=== PATIENT | female | born 1990 | race Caucasian/White ===

== ENCOUNTER 2024-01-24 12:38 | Inpatient (IN) | payer OTHER, BC ==
[~2024-01-24] VITALS: Ht 170.2 cm; Wt 99.8 kg
[2024-01-24] MEDS ORDERED: MAGNESIUM HYDROXIDE/AL HYDROX 30 ML CUP PO PRN ×2 (13:15→21:30)
[2024-01-24] MEDS ORDERED: CALCIUM CARBONATE 500 MG CHEW PO PRN ×2 (13:15→21:30)
[2024-01-24] MEDS ORDERED: LACTATED RINGER'S 1,000 ML IV PRN (13:15)
[2024-01-24 13:31] VITALS: BP 122/82
[2024-01-24] MEDS ORDERED: OXYTOCIN/DEXTROSE 5% 20 UNITS/100 ML BAG IV SCH (13:45)
[2024-01-24 14:00] LABS: AMPHETAMINES, URINE NEGATIVE (NEGATIVE); BARBITURATES, URINE NEGATIVE (NEGATIVE); BENZODIAZEPINE, URINE NEGATIVE (NEGATIVE); BUPRENORPHINE, URINE NEGATIVE (NEGATIVE); CANNABINOID, URINE NEGATIVE (NEGATIVE); COCAINE, URINE NEGATIVE (NEGATIVE); ECSTASY, URINE NEGATIVE (NEGATIVE); FENTANYL, URINE NEGATIVE (NEGATIVE); METHADONE, URINE NEGATIVE (NEGATIVE); OPIATES, URINE NEGATIVE (NEGATIVE); OXYCODONE, URINE NEGATIVE (NEGATIVE); PHENCYCLIDINE, URINE NEGATIVE (NEGATIVE)
[2024-01-24 14:01] LABS: HEMATOCRIT 38.9 % (35.0-50.0); HEMOGLOBIN 13.2 g/dL (12.0-18.0); MCH 33.4 (27-36); MCHC 33.9 g/dl (30-36); MCV 98.6 fl (81-99); RBC 3.95 M/ul (4.3-5.7); RDW 12.9 (10.5-15.0)
[2024-01-24 14:44] LABS: ABO A; RH POSITIVE
[2024-01-24 14:45] LABS: ANTIBODY SCREEN NEGATIVE
[2024-01-24] MEDS ORDERED: BUPIVACAINE HCL 0.25% 10 ML SDV INJ ONE (15:27)
[2024-01-24] MEDS ORDERED: ROPIVACAINE 0.2% 200 ML BAG ONE (15:27)
[2024-01-24] MEDS ORDERED: LIDOCAINE HCL 2% 5 ML SDV ONE (15:27)
[2024-01-24] MEDS ORDERED: LIDOCAINE 2% W/ EPI 1:100,000 20 ML VIAL ONE (15:59)
[2024-01-24] MEDS ORDERED: dexmedeTOMIDine HCl 200 MCG/2 ML VIAL ONE (16:00)
[2024-01-24] MEDS ORDERED: LACTATED RINGER'S 500 ML IV PRN (16:15)
[2024-01-24] MEDS ORDERED: ePHEDrine sulfate 5 MG/ML SYRINGE IV PRN (16:15)
[2024-01-24] MEDS ORDERED: ROPIVACAINE 0.2% 200 ML BAG EPIDURAL SCH ×2 (16:15)
[2024-01-24] MEDS ORDERED: LACTATED RINGER'S 2,000 ML IV ONE (16:15)
[2024-01-24] MEDS ORDERED: ePHEDrine KIT FOR FBC IV ONE (17:54)
--- NOTE | 2024-01-24 17:59 | PR ---
[facility] [address] [place], [place] [address] Signed Progress Notes IP Datetime Report Generated by CPN: 01/24/2024 17:59 PROGRESS NOTES: [id number] Impression: Normal Progression of Labor; Reassuring Heart Rate Procedures: Sterile Vag Exam Plan: Continue Present Management; Anticipate Vaginal Delivery VITAL SIGNS: [id number] Vital Signs: Reviewed; Within Normal Limits EXAM: [id number] Dilatation: 6.0 Effacement: 80 Station: -2 Contractions: q 1-3 minutes MEMBRANES: [id number] ROM Note: SROM 7/2 @ 1100, clear Comments: Pt seen and examined. Doing well. Comfortable w/ epidural but c/o nausea. Reviewed labor progress. All questions answered. Anticipate FETUS A: [id number] FHR Baseline: 125 Variability: Moderate 6-25bpm Accelerations: 15X15 Decelerations: Late FHR Category: Category II Presentation: Vertex Comments on Fetus A: No evidence of metabolic acidosis FETUS B: [id number] Signing Physician: Pa Zayas DO Copies: ~ *Electronically Signed* 01/24/24 8469 PA ZAYAS (MUNIR) DO PATIENT NAME: OZ GILL PROGRESS NOTE DATE OF : [birth year] PHYSICIAN: PA ZAYAS) DO RPT #: [id number] REPORT IS CONFIDENTIAL AND NOT TO BE RELEASED WITHOUT AUTHORIZATION
--- NOTE | 2024-01-24 20:17 | PR ---
[facility] [address] [facility] [place] [address] Signed Progress Notes IP Datetime Report Generated by CPN: 01/24/2024 20:17 PROGRESS NOTES: [id number] Impression: Normal Progression of Labor; Reassuring Heart Rate Procedures: Sterile Vag Exam Plan: Anticipate Vaginal Delivery Informed Consent Obtain: Vaginal Delivery VITAL SIGNS: [id number] Vital Signs: Reviewed; Within Normal Limits EXAM: [id number] Dilatation: 10.0 Effacement: 80 Station: -2 Contractions: q 1-2 min MEMBRANES: [id number] ROM Note: SROM 7/2 @ 1100, clear Comments: Pt seen and examined. Doing well. Comfortable w/ contractions. Will move towards delivery. Anticipate soon. All questions answered FETUS A: [id number] FHR Baseline: 125 Variability: Moderate 6-25bpm Accelerations: 15X15 Decelerations: Early FHR Category: Category I Presentation: Vertex Comments on Fetus A: No evidence of metabolic acidosis FETUS B: [id number] Signing Physician: Pa Zayas DO Copies: ~ *Electronically Signed* 01/24/242016 PA ZAYAS (MUNIR) DO PATIENT NAME: OZ GILL PROGRESS NOTE DATE OF : 90 PHYSICIAN: PA ZAYAS) DO RPT #: [id number] REPORT IS CONFIDENTIAL AND NOT TO BE RELEASED WITHOUT AUTHORIZATION
[2024-01-24] MEDS ORDERED: HYDROCORTISONE ACETATE 25 MG SUPP PR PRN (21:30)
[2024-01-24] MEDS ORDERED: MAGNESIUM HYDROXIDE 30 ML UDC PO PRN (21:30)
[2024-01-24] MEDS ORDERED: IBUPROFEN 600 MG TAB PO PRN (21:30)
[2024-01-24] MEDS ORDERED: ACETAMINOPHEN 325 MG TAB PO PRN (21:30)
[2024-01-24] MEDS ORDERED: OXYCODONE/APAP 5/325 TAB PO PRN (21:30)
[2024-01-24] MEDS ORDERED: WITCH HAZEL/GLYCERIN 1 EA PAD TOP PRN (21:30)
[2024-01-24] MEDS ORDERED: HYDROCODONE/ACETA 5/325 TAB PO PRN (21:30)
[2024-01-24] MEDS ORDERED: BENZOCAINE 60 ML AEROSOL TOP PRN (21:30)
[2024-01-24] MEDS ORDERED: OXYTOCIN/0.9 % SODIUM CHLORIDE 500 ML IV SCH (21:30)
[2024-01-25 06:20] LABS: HEMATOCRIT 33.9 % (35.0-50.0); HEMOGLOBIN 11.3 g/dL (12.0-18.0); MCH 32.9 (27-36); MCHC 33.3 g/dl (30-36); MCV 98.7 fl (81-99); RBC 3.43 M/ul (4.3-5.7); RDW 13.2 (10.5-15.0)
[2024-01-25] MEDS ORDERED: SENNOSIDES/DOCUSATE 1 EA TAB PO SCH (09:00)
--- NOTE | 2024-01-25 18:59 | PR ---
[facility] [address] [facility] [place], [place] [address] Signed PP Progress Notes Datetime Report Generated by CPN: 01/25/2024 18:59 SUBJECTIVE: [id number] Pain: Within Normal Limits Nausea/Vomiting: Denies Flatus: Yes Bowel Movement: No Vital Signs: [id number] Vital Signs: Reviewed; Within Normal Limits EXAM: Ongoing Cardiovascular: Normal Respiratory: Normal Abdomen/Uterus: Normal Lochia: Normal Vulva/Perineum: Not Done Breasts: Not Done CVA Tenderness: Normal Extremities: Normal Incision: Not Applicable Progress: Normal Exam Comments: Fundus firm U-2 nontender IMPRESSION/PLAN/PROCEDURES: [id number] Impression: Normal Progression Plan: Continue Present Management Progress Notes: Pt seen and examined. Doing well. Ambulating, voiding, and tolerating full diet. Pain and lochia minimal. well. No concerns. Desires d/c home tomorrow. Signing Physician: Pa Zayas DO Copies: ~ *Electronically Signed* 01/25/24 5150 PA ZAYAS (MUNIR) DO PATIENT NAME: OZ GILL PROGRESS NOTE DATE OF : 90 PHYSICIAN: PA ZAYAS (MUNIR) DO RPT #: [id number] REPORT IS CONFIDENTIAL AND NOT TO BE RELEASED WITHOUT AUTHORIZATION
--- NOTE | 2024-01-26 09:02 | PR ---
[facility] [address] [facility] [place], [place] [address] Signed PP Progress Notes Datetime Report Generated by CPN: 01/26/2024 09:02 SUBJECTIVE: [id number] Pain: Within Normal Limits Nausea/Vomiting: Denies Flatus: Yes Bowel Movement: No Vital Signs: [id number] Vital Signs: Reviewed; Within Normal Limits EXAM: Ongoing Cardiovascular: Normal Respiratory: Normal Abdomen/Uterus: Normal Lochia: Normal Vulva/Perineum: Not Done Breasts: Not Done CVA Tenderness: Normal Extremities: Normal Incision: Not Applicable Progress: Normal Exam Comments: Fundus firm U-2 nontender IMPRESSION/PLAN/PROCEDURES: [id number] Impression: Normal Progression Plan: Discharge Progress Notes: Pt seen and examined. Doing well. Ambulating, voiding, and tolerating full diet. Pain and lochia minimal. . Pt reports feeling in a "much better" place w/ mood than with prior delivery. Planning micronor for pp contraception. No questions or concerns. Desires d/c home Signing Physician: Pa Zayas DO Copies: ~ *Electronically Signed* 01/26/[address] PA ZAYAS (MUNIR) DO PATIENT NAME: OZ GILL PROGRESS NOTE DATE OF : 90 PHYSICIAN: PA ZAYAS) DO RPT #: [id number] REPORT IS CONFIDENTIAL AND NOT TO BE RELEASED WITHOUT AUTHORIZATION
== END 2024-01-26 10:00 | disposition home or self-care (01) | DRG 807 ==
LOC: FBCO 12:38 → FBC 13:00
PROVIDERS: ADMIT Obstetrics & Gynecology; ATTEND Obstetrics & Gynecology
PROC: 10E0XZZ Delivery of Products of Conception, External Approach (ICD-10-PCS; principal; 2024-01-24)
PROC: 3E0R3BZ Introduction of Anesthetic Agent into Spinal Canal, Percutaneous Approach (ICD-10-PCS; 2024-01-24)
PROC: 00HU33Z Insertion of Infusion Device into Spinal Canal, Percutaneous Approach (ICD-10-PCS; 2024-01-24)
PROC: 0UQMXZZ Repair Vulva, External Approach (ICD-10-PCS; 2024-01-24)
DX: O48.0 Post-term pregnancy (principal); Z37.0 Single live birth; Z3A.40 40 weeks gestation of pregnancy; O76 Abnormality in fetal heart rate and rhythm complicating labor and delivery; O71.82 Other specified trauma to perineum and vulva
CPT/HCPCS: 01960; 36415; 80307; 85027; 86850; 86900; 86901; A9270; J2001; J2590; J2795; J7121

== ENCOUNTER 2025-01-02 11:27 | Emergency (ER) | payer OTHER, BC ==
[~2025-01-02] VITALS: Ht 182.9 cm; Wt 84.0 kg
[2025-01-02 12:10] LABS: BILIRUBIN, URINE NEGATIVE (negative); BLOOD/HGB, URINE TRACE-I (Negative); KETONE, URINE NEGATIVE (Negative); LEUK ESTERASE, URINE NEGATIVE (negative); NITRITE, URINE NEGATIVE (negative)
[2025-01-02 12:19] LABS: CRYSTALS, URINE NONE SEEN (0-1+); EPITHELIAL CELLS, URINE SQUAMOUS 1+ /lpf (0-1+); WHITE BLOOD CELLS, URINE 0-1 /HPF (0-5)
[2025-01-02 12:20] LABS: BACTERIA, URINE NONE SEEN /hpf (negative); CASTS, URINE NONE SEEN \\lpf; COLLECTION TYPE, URINE CLEAN CATCH; REFLEX CULTURE, URINE No (No)
[2025-01-02 12:23] LABS: BASOPHILS 0.3 % (0.1-1.2); EOSINOPHILS 2.5 % (0.7-5.8); HEMATOCRIT 35.3 % (34.1-44.9); HEMOGLOBIN 11.7 g/dL (11.2-15.7); LYMPHOCYTES 31.4 % (19.3-51.7); MCH 32.9 PG (25.6-32.2); MCHC 33.1 g/dL (32.2-35.5); MCV 99.2 fL (79.4-94.8); MONOCYTES 6.6 % (4.7-12.5); NEUTROPHILS 59.1 % (34.0-71.1); PLATELET COUNT 232 K/uL (182-369); RBC 3.56 M/uL (3.93-5.22)
[2025-01-02 12:46] LABS: ABO A; RH POSITIVE
[2025-01-02 12:49] LABS: BUN/CREATININE RATIO 16.47 (6.0-28.6); CALCIUM 8.8 mg/dL (8.5-10.1); CREATININE, SERUM 0.85 mg/dL (0.55-1.02)
[2025-01-02 14:33] VITALS: BP 104/76
== END 2025-01-02 14:35 | disposition home or self-care (01) ==
LOC: ED 11:27
PROVIDERS: Emergency Medicine
DX: O03.9 Complete or unspecified spontaneous abortion without complication (principal)
CPT/HCPCS: 36415; 76801; 76805; 76817; 80048; 81001; 84702; 85025; 86900; 86901; 99284-25

== ENCOUNTER 2025-01-14 15:41 | Observation (INO) | payer OTHER, BC ==
[~2025-01-14] VITALS: Ht 200.7 cm; Wt 81.8 kg
[~2025-01-14 15:41] MED LIST: SEVOFLURANE 250 ML BTL INH ONE
[2025-01-14] MEDS ORDERED: LACTATED RINGER'S 1,000 ML IV PRN (16:00)
[2025-01-14 16:39] LABS: BASOPHILS 0.7 % (0.1-1.2); HEMATOCRIT 36.7 % (34.1-44.9); HEMOGLOBIN 11.9 g/dL (11.2-15.7); LYMPHOCYTES 43.3 % (19.3-51.7); MCH 32.2 PG (25.6-32.2); MCHC 32.4 g/dL (32.2-35.5); MCV 99.5 fL (79.4-94.8); MONOCYTES 8.7 % (4.7-12.5); NEUTROPHILS 44.1 % (34.0-71.1); PLATELET COUNT 248 K/uL (182-369); RBC 3.69 M/uL (3.93-5.22)
[2025-01-14 16:51] LABS: INR 1.02 (0.80-1.30)
[2025-01-14 16:52] VITALS: BP 105/63
[2025-01-14 16:54] LABS: PARTIAL THROMBOPLASTIN TIME 28.3 Sec (22.9-41.3)
[2025-01-14] MEDS ORDERED: SEMAGLUTID0.5 MG/0.1 SUB-Q (16:54)
[2025-01-14 17:16] LABS: ABO A; ANTIBODY SCREEN NEGATIVE; RH POSITIVE
[2025-01-14 17:18] LABS: ALBUMIN 3.9 g/dL (3.4-5.0); ALBUMIN/GLOBULIN RATIO 1.18 (1.1-2.4); ANION GAP 12.9 (7-21); BILIRUBIN, TOTAL 0.3 mg/dL (0.2-1.0); POTASSIUM 3.9 mmol/L (3.5-5.1); PROTEIN, TOTAL 7.2 g/dL (6.4-8.2)
[2025-01-14] MEDS ORDERED: ROCURONIUM BROMIDE 50 MG/5 ML SYR ONE (17:35)
[2025-01-14] MEDS ORDERED: fentaNYL citrate 100 MCG/2 ML VIAL ONE ×3 (17:35→21:05)
[2025-01-14] MEDS ORDERED: SUCCINYLCHOLINE IN 0.9% NACL 200 MG/10 ML SYRINGE ONE (17:35)
[2025-01-14] MEDS ORDERED: LIDOCAINE HCL 2% 5 ML SDV ONE (17:35)
[2025-01-14] MEDS ORDERED: propofoL 200 MG/20 ML VIAL ONE (17:35)
[2025-01-14] MEDS ORDERED: SODIUM CHLORIDE 0.9% 1,000 ML IV SCH (18:00)
--- NOTE | 2025-01-14 18:36 | NUR ---
PT TO FLOOR FROM DAY SURGERY AND CT SCAN. PT'S IN ROOM. PT RATES PAIN TO ABD AT 2/10 AND STATES IS TOLERABLE AT THIS TIME. CALL LIGHT WITHIN REACH.
[2025-01-14 18:38] VITALS: BP 103/63
--- NOTE | 2025-01-14 19:31 | NUR ---
in talking to patient. Pt will be taken to the OR tonight. at bedside. Consent signed.
--- NOTE | 2025-01-14 19:44 | NUR ---
WILL COLLECT UA IN THE OR. WIPE DOWN DONE, IV'S FLUSHED, LR FLUID AND STRAIGHT TUBING READY.
--- NOTE | 2025-01-14 20:30 | NUR ---
PATIENT HAS LEFT MED SURG FOR SURGERY
[2025-01-14] MEDS ORDERED: SUGAMMADEX SODIUM 200 MG/2 ML ML ONE (21:04)
[2025-01-14] MEDS ORDERED: KETOROLAC TROMETHAMINE 30 MG/ML VIAL ONE (21:04)
[2025-01-14 21:08] VITALS: BP 127/70
[2025-01-14] MEDS ORDERED: MEPERIDINE HCL 25 MG/1 ML VIAL ONE (22:12)
[2025-01-14] MEDS ORDERED: NALOXONE HCL 0.4 MG SYR IV PRN (22:15)
[2025-01-14] MEDS ORDERED: PROCHLORPERAZINE EDISYLATE 10 MG/2 ML VIAL IV PRN (22:15)
[2025-01-14] MEDS ORDERED: MAGNESIUM HYDROXIDE/AL HYDROX 30 ML CUP PO PRN (22:15)
[2025-01-14] MEDS ORDERED: SIMETHICONE 80 MG CHEW PO PRN (22:15)
[2025-01-14] MEDS ORDERED: OXYCODONE/APAP 5/325 TAB PO PRN (22:15)
[2025-01-14] MEDS ORDERED: FAMOTIDINE 20 MG/ 2 ML VIAL IV PRN (22:15)
[2025-01-14] MEDS ORDERED: ondansetron HCL 4 MG/2 ML VIAL IV PRN (22:15)
--- NOTE | 2025-01-14 22:40 | NUR ---
pt BACK FROM SURGERY AT 2240, AWAKE, ALERT. VSS. CPOX ON. REPORT RECEIVED FROM HANDOFF RNS. PRIMARY RN JEANIE IN ROOM ASSESSING pt.
[2025-01-14 22:44] VITALS: BP 103/56
--- NOTE | 2025-01-14 23:16 | NUR ---
PATIENT IN ROOM AND SETTLED IN FOR THE NIGHT. AT BEDSIDE. DENIES PAIN AT THIS TIME, ICE PACK APPLIED TO ABD. WATER AND 7UP GIVEN. IV FLUIDS ARE RUNNING, VITALS WNL. CRACKERS ALSO GIVEN. CALL LIGHT WITHIN REACH. DENIES ANY OTHER CARES AT THIS TIME.
--- NOTE | 2025-01-14 23:43 | NUR ---
01/14/25 2343 John Herring 4-PT ARRIVED TO PACU ON RA, DROWSY, BUT RESPONSIVE TO VERBAL STIMULI AND ANSWERING QUESTIONS APPROPRIATELY. PT NOTED TO BE SHIVERING AND GIVEN WARM BLANKETS. 2206-DR. SAINI AT BEDSIDE TO DISCUSS CASE WITH PT. 2210-PT DENIES PAIN OR NAUSEA WHEN ASKED. PT CONT TO SHIVER, BUT DENIES FEELING COLD. 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 5-IV DEMEROL GIVEN PER ORDERS. SURGICAL SITES VISUALIZED. PT WITH 3 LAP SITES TO ABD, MIKA CDI. PERIPAD IN PLACE WITH SMALL AMT OF SANGUINEOUS DRAINAGE PRESENT. PT CONT TO DENY PAIN AND NAUSEA WHEN ASKED. 2220-PTS SHAKING REDUCED. PT MORE AWAKE AND ASKING QUESTIONS. ALL QUESTIONS ANSWERED. PT ENCOURAGED TO DEEP BREATH AND COUGH. PT DEMONSTRATES UNDERSTANDING. 2225-SHAKING HAS CEASED. PT DROWSY BUT TALKING AND ANSWERING QUESTIONS APPROPRIATELY. SATS REMAIN STABLE ON RA AT 94% OR GREATER. 2229-DR. SAINI BACK AT PTS BEDSIDE CONVERSING. PT CONT TO DENY PAIN OR NAUSEA WHEN ASKED. 2235-SURGICAL SITES VISUALIZED AND NO ACUTE CHANGES IN DRESSINGS OR PERIPAD FROM INITIAL ASSESSMENT. RR EVEN AND UNLABORED. SATS STABLE AT 95% OR GREATER ON RA. PT CONT TO DENY PAIN AND NAUSEA WHEN ASKED. MED SURG FLR NOTIFIED OF PT RETURNING SOON. 224-PT TRASNFERRED BACK TO MED SURG ROOM 109 VIA BED. ALL PERSONAL BELONGINGS TAKEN WITH PT. REPORT GIVEN TO ADVISORY INTERNBLAKE Sargent SURGICAL SITES VISUALIZED WITH ADVISORY INTERN WHITNEY. BED PLUGGED IN, IN LOW POSITION, WHEELS LOCKED, AND CALL LIGHT WITHIN PT REACH. ALL QUESTIONS WERE ANSWERED. PT CONT TO DENY PAIN OR NAUSEA. PTS SPOUSE AT BEDSIDE.
--- NOTE | 2025-01-14 23:45 | NUR ---
PATIENT UP AND TOLERATED WELL. UNABLE TO VOID AT THIS TIME WILL TRY AGAIN LATER. BED CLEANED UP. PATIENT WASHED FACE AND GOT READY FOR BED.
[2025-01-14 23:46] VITALS: BP 88/44
--- NOTE | 2025-01-15 00:04 | NUR ---
Pt report received from BLAKE Shelby. Pt is resting supine in bed, eyes closed, breathing is regular, even, and non-labored. Side rails up x4, call light in reach. Pt's resting in chair next to bed, awake, watching television. White board updated.
[2025-01-15 00:47] VITALS: BP 93/53
[2025-01-15 00:48] VITALS: BP 93/53
[2025-01-15 01:48] VITALS: BP 98/52
[2025-01-15 01:49] VITALS: BP 98/52
--- NOTE | 2025-01-15 05:35 | NUR ---
In with pt for hourly rounding, pt is slightly awake, needs to get up to use the toilet. SBA as pt ambulates, line and tube mgmnt, in to void. Pt able to void, unmeasured, reports increasing pain with ambulation but states it goes away when she sits still. Pt provided with a fresh cup of coffee at her request, coffee provided to her spouse as well. Pt back in bed. IV S/L as pt is tolerating PO fluids and crackers without nausea. 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 VSS
[2025-01-15 05:45] VITALS: BP 105/55
[2025-01-15 05:59] LABS: HEMATOCRIT 34.7 % (34.1-44.9); HEMOGLOBIN 11.5 g/dL (11.2-15.7); MCH 32.8 PG (25.6-32.2); MCHC 33.1 g/dL (32.2-35.5); MCV 98.9 fL (79.4-94.8); RBC 3.51 M/uL (3.93-5.22)
--- NOTE | 2025-01-15 08:03 | NUR ---
HOURLY ROUNDING. PATIENT JUST WOKEN UP, AR BEDSIDE. PATIENT ASKED WHEN DOES THE DOCTOR DO THEIR ROUNDING. BOARD HAS BEEN UPDATED AND CALL LIGHT HAS BEEN PLACED WITHIN REACH
--- NOTE | 2025-01-15 08:24 | NUR ---
UR CLINICAL REVIEW: [facility] ME[facility] OBS FOR ECTOPIC WITH NEED FOR SURGICAL INTERVENTION [facility] OBS 01/14/25 @ 1541 ORDER MATCHES REG NO AUTH REQUIRED FOR OBS STAY PER [facility] GUIDELINES DISCHARGE TO HOME TODAY
[2025-01-15] MEDS ORDERED: SIMETHICONE 80 MG CHEW PO SCH (09:00)
[2025-01-15 09:40] VITALS: BP 106/67
[2025-01-15] MEDS ORDERED: PHARMACY RENAL DOSE ADJUSTMENT 1 DOSE MISC PO SCH (12:00)
--- NOTE | 2025-01-15 17:24 | OR ---
[facility] [address] [place], [place] [address] Signed DATE OF OPERATION: 01/14/2025 SURGEON: Pa Zayas DO PREOPERATIVE DIAGNOSES: Pelvic mass, likely ectopic . POSTOPERATIVE DIAGNOSES: 1. Left fallopian tube ectopic . 2. Left hemorrhagic cyst. 3. Hemoperitoneum. PROCEDURES PERFORMED: 1. Left salpingectomy. 2. Ovarian cystectomy. 3. Evacuation of hemoperitoneum. ANESTHESIA: General. ESTIMATED BLOOD LOSS: 400 mL of which the vast majority is hemoperitoneum at the beginning of the case. SPECIMEN: 1. Left fallopian tube and ectopic . 2. Left ovarian cyst wall. DRAINS: None. FINDINGS: Normal external genitalia with normal clitoris urethral meatus, bilateral Smiley's and Bartholin's glands. Normal vagina and cervix with moderate amount of menstrual/uterine bleeding at the beginning of the case. On laparoscopy, hemoperitoneum noted at the beginning of the case. Left fallopian tube mass consistent with ectopic as well as a left hemorrhagic ovarian cyst. Otherwise; normal uterus, right fallopian tube, bilateral ovaries. No evidence of endometriosis or other pelvic pathology. Normal liver, gallbladder, and appendix. Left ovary hemostatic at the end of the procedure. Electronically Signed By: PA ZAYAS DO (JD) 01/15/25 1724 PATIENT NAME: OZ GILL OPERATIVE REPORT DATE OF : 90 REPORT #: [id number] PHYSICIAN: PA ZAYAS (MUNIR) DO PCP: PA ZAYAS (MUNIR) DO REPORT IS CONFIDENTIAL AND NOT TO BE RELEASED WITHOUT AUTHORIZATION [facility] [address] [place], [place] [address] Signed COMPLICATIONS: None. INDICATIONS: Ms. Gill is a very pleasant 34-year-old female, who initially presented with miscarriage to the ER on 01/02/2025. She was found to have decreasing quants and ultrasound demonstrated no evidence of intra or extrauterine . The patient was advised to perform serial quant-hCGs and follow up in the office. She did not complete her hCGs and on followup today, the patient reports a 2-3 day history of worsening abdominal pelvic pain. No fever. Exam demonstrated chandelier sign, but no obvious adnexal mass. She was further evaluated with labs that demonstrated no leukocytosis, elevated lactic acid or other markers of inflammation. Vital signs were stable. She is afebrile. HCG was noted to be inappropriately elevated consistent with concern for ectopic . An ultrasound was performed demonstrating empty uterus with a complex adnexal mass concerning for ectopic versus hematoma versus abscess. In order to clarify this further, a CT of the pelvis was performed which did not show any signs of intrapelvic inflammation or infection. Recommended proceeding with a diagnostic laparoscopy with possible unilateral salpingectomy. The case was reviewed in detail with the patient and her , who both understand and agree and wished to proceed with the procedure. We did discuss that if fallopian tube was noted that salpingectomy would be their preferred approach. Risks, benefits, and alternatives were discussed in detail with the patient. The patient understands and wished to proceed with the procedure. TECHNIQUE: The patient was taken to the OR, timeout was performed to confirm correct patient, correct procedure. General anesthesia was adequately established. The patient was prepped and draped in the dorsal lithotomy position with feet in Yellofin stirrups. ICPs were on running and no preoperative antibiotics or heparin was indicated. The patient's clitoral piercing was removed. Cason catheter was inserted. Weighted speculum was placed in vagina and the anterior lip of the cervix was grasped with an Allis clamp. A Plerts uterine manipulator was placed and attention was turned to the abdomen. The surgeon's gloves were changed. The base of the umbilicus was infiltrated with 0.25% Marcaine with epinephrine. A 5 mm stab incision was made at the base of the umbilicus and a 5 mm laparoscopic port was placed under direct visualization without complication. Pneumoperitoneum was established. Upon establishment of pneumoperitoneum, hemoperitoneum was noted with ~ 350-400 of blood and clot noted. 5 mm promotions assistant sales marketing ports were placed in the left lower and right lower quadrant under direct visualization without complication. Hemoperitoneum was evacuated. Abdomen and pelvis irrigated for further evaluation. Normal liver, gallbladder, stomach, and appendix were noted. Attention was turned to the pelvis. The right adnexa appeared normal with normal ovary and fallopian tube. The left adnexa demonstrated a left fallopian tube Electronically Signed By: PA BELCHER) DO PARVEEN 01/15/25 1724 PATIENT NAME: OZ GILL OPERATIVE REPORT DATE OF : [birth year] REPORT #: [id number] PHYSICIAN: PA ZAYAS) PCP: PA ZAYAS) REPORT IS CONFIDENTIAL AND NOT TO BE RELEASED WITHOUT AUTHORIZATION [address] [address] Signed with mass consistent with ectopic in the isthmic portion. There is also a left hemorrhagic cyst incidentally noted. Decision was made to proceed with left salpingectomy as previously discussed with the patient and her partner. The left fallopian tube was grasped with fimbriated end, elevated and divided along the mesosalpinx using the LigaSure device. The tube was amputated at the cornu. The hemorrhagic cyst wall was then grasped with a blunt retractor and excised without difficulty. These two specimens were placed in an EndoCatch bag and delivered through the left assist left lower quadrant assist port without difficulty. Pneumoperitoneum was reestablished and the left trocar site was returned. The pelvis and abdomen were again copiously irrigated and the patient was placed into reverse Trendelenburg position and slowly advanced to steep Trendelenburg, removing as much blood and irrigant as possible. The left ovary was carefully evaluated. While there was no active bleeding, decision was made to ensure hemostasis with Tisseel. Tisseel was selected and applied to the left ovary and dissection site without difficulty. Pneumoperitoneum was slowly reduced and careful evaluation of the pelvis and left ovary was noted with no hemorrhage or bleeding appreciated. Pneumoperitoneum was reduced. Trocars were removed and trocar sites were repaired using 3-0 Vicryl Rapide in a subcuticular stitch. The Cason catheter was reinserted. The clitoral gonzales ring was replaced per patient request and the Hulka uterine manipulator was removed. The patient was then taken to PACU in good and stable condition. Sponge, needle, and instrument counts correct x2 at the end of the procedure. DO ETGAN Mueller/SHAHBAZL /[id number] Copies: ~ Electronically Signed By: PA ZAYAS DO (JD) 01/15/25 1724 PATIENT NAME: OZ GILL OPERATIVE REPORT DATE OF : [birth year] REPORT #: [id number] PHYSICIAN: PA ZAYAS (MUNIR) PCP: PA ZAYAS (MUNIR) DO REPORT IS CONFIDENTIAL AND NOT TO BE RELEASED WITHOUT AUTHORIZATION
--- NOTE | 2025-01-17 12:17 | PATH ---
[facility] [address] [place], [place] [address] Signed SPECIMEN(S): A LEFT FALLOPIAN TUBE, ECTOPIC SPECIMEN(S): B LEFT OVARIAN CYST WALL SPECIMEN SOURCE: A. LEFT FALLOPIAN TUBE, ECTOPIC B. LEFT OVARIAN CYST WALL CLINICAL HISTORY: Pelvic mass-ectopic FINAL PATHOLOGIC DIAGNOSIS: A. Fallopian tube, left, salpingectomy: - Fimbriated fallopian tube segment with intraluminal products of conception B. Ovary, left, cystectomy: - Fragments of fibrinoid tissue and hemorrhage BRP MICROSCOPIC EXAMINATION: Histologic sections of all submitted blocks are examined by light microscopy. These findings, together with the gross examination, support the pathologic diagnosis. GROSS DESCRIPTION: A. The specimen, labeled and designated "Derrick, left fallopian tube, ectopic ," is received in formalin and consists of fallopian tube that measure 5.7 cm in length and vary in diameter from 0.7 to 1.7 cm. The fallopian tube shows fimbria and dark red and congested serosa. The fallopian wall grossly look intact. Sectioning through the fallopian tube shows a lumen that is filled with coagulated blood. Elevated Motorman sections are submitted in (A1-A3). B. The specimen, labeled and designated "Derrick, left ovarian cyst wall," is received in formalin and consists of irregular shaped membranous and hemorrhagic tissue fragments that aggregate measure 2.3 x 2.0 x 0.6 cm. Sectioning through the specimen is grossly unremarkable. Entirely submitted in (B1). JS (under the direct supervision of a pathologist) The Gross Description was prepared using a voice recognition system. The report was reviewed for accuracy; however, sound-alike word errors, addition and/or deletions may occur. If there is any question about this report, please contact Client Services. PATIENT NAME: OZ GILL PATHOLOGY DATE OF : [birth year] REPORT #: [id number] PHYSICIAN: ALYSE PATHOLOGY PCP: PA SAINI (MUNIR) DO REPORT IS CONFIDENTIAL AND NOT TO BE RELEASED WITHOUT AUTHORIZATION [facility] [address] [place], [place] [address] Signed ADDITIONAL NOTES: Immunohistochemical and/or in situ hybridization studies if performed in this case included appropriate positive controls that reacted as expected. This test was developed and its performance characteristics determined by [facility]. It has not been cleared or approved by the U.S. Food and Drug Administration. The FDA has determined that such clearance or approval is not necessary. This test is used for clinical purposes. It should not be regarded as investigational or for research. [facility] is certified under the Clinical Laboratory Improvement Amendments of 1988 (CLIA) as qualified to perform high complexity clinical laboratory testing. PERFORMING LABORATORY: Technical component was performed by [facility], [address] [place] [id number] (CLIA# [id number]). Professional interpretation was performed by [facility], [address] [place] [id number] (CLIA#: [id number]). Diagnostician: Blaze Echavarria MD Pathologist Electronically Signed 01/17/2025 Copies: ~ PATIENT NAME: OZ GILL PATHOLOGY DATE OF : [birth year] REPORT #: [id number] PHYSICIAN: ALYSE PATHOLOGY PCP: PA SAINI (MUNIR) DO REPORT IS CONFIDENTIAL AND NOT TO BE RELEASED WITHOUT AUTHORIZATION
== END 2025-01-15 09:45 | disposition home or self-care (01) ==
LOC: MS 15:41
PROVIDERS: ADMIT Obstetrics & Gynecology; ATTEND Obstetrics & Gynecology
PROC: 0UB14ZZ Excision of Left Ovary, Percutaneous Endoscopic Approach (ICD-10-PCS; principal; 2025-01-14 17:30)
PROC: 0UB64ZZ Excision of Left Fallopian Tube, Percutaneous Endoscopic Approach (ICD-10-PCS; 2025-01-14 17:30)
DX: N83.202 Unspecified ovarian cyst, left side (principal); S36.899A Unspecified injury of other intra-abdominal organs, initial encounter; O03.37 Sepsis following incomplete spontaneous abortion; O03.4 Incomplete spontaneous abortion without complication
CPT/HCPCS: 00840; 36415; 72193; 76830; 76856; 80053; 81001; 83605; 84702; 85025; 85027; 85384; 85610; 85730; 86850; 86900; 86901; 87088; J0330; J1885; J2003; J2175; J2704; J3010; J3490; J7030; J7121; Q9967